=== PATIENT | male | born 1970 | race Caucasian/White ===

== ENCOUNTER 2016-05-12 09:39 | Emergency (ER) | payer OTHER ==
--- NOTE | 2016-05-12 11:11 | XR ---
EXAMINATION TYPE: XR ribs LT w pa chest x-ray DATE OF EXAM ORDERED: 05/12/2016 10:44 AM HISTORY: Pain. COMPARISON: None. FINDINGS: There is some scarring or atelectasis at the left lung base. The lungs are otherwise clear . Pleural spaces are clear. Heart size is within normal limits. No displaced rib fractures seen. No p neumothorax is identified. IMPRESSION: 1. NO ACUTE INTRATHORACIC ABNORMALITY. 2. I DO NOT IDENTIFY A DISPLACED RIB FRACTURE AT THIS TIME.
--- NOTE | 2016-05-12 11:37 | ED ---
Chest Pain HPI - General Chief Complaint: Chest Pain Stated Complaint: rib injury, [facility] Time Seen by Provider: 05/12/16 10:16 Source: patient, RN notes reviewed Mode of arrival: ambulatory Limitations: no limitations - History of Present Illness Initial Comments: 46-year-old male presents emergency Department with chief complaint of rib pain. Patient states he works for [employer]. Patient states that he was doing some training exercise when his partner fell onto his chest wall. Patient states she had sudden onset of left rib pain. Patient states hurts to deep inspiration. Patient has no shortness breath at rest but states it hurts when he takes deep breath. Patient denies any other extremity injuries. No head injury. - Related Data Previous Rx's Medication Instructions Recorded Hydrocodone/Acetaminophen [[place] 1 tab PO Q6HR PRN #20 tab 05/12/16 5-325] Allergies Allergy/AdvReac Type Severity Reaction Status Date / Time No Known Allergies Allergy Verified 05/12/16 10:02 Review of Systems ROS Statement: Those systems with pertinent positive or pertinent negative responses have been documented in the HPI. ROS Other: All systems not noted in ROS Statement are negative. Past Medical History Past Medical History: No Reported History History of Any Multi-Drug Resistant Organisms: None Reported Additional Past Surgical History / Comment(s): abd surgery Past Psychological History: No Psychological Hx Reported Smoking Status: Never smoker Past Alcohol Use History: Rare Past Drug Use History: None Reported General Exam Limitations: no limitations General appearance: alert, in no apparent distress Head exam: Present: atraumatic, normocephalic, normal inspection Neck exam: Present: normal inspection, full ROM. Absent: tenderness, meningismus, lymphadenopathy Respiratory exam: Present: normal lung sounds bilaterally, chest wall tenderness (Moderate anterior to lateral chest wall tenderness). Absent: respiratory distress, wheezes, rales, rhonchi, stridor Cardiovascular Exam: Present: regular rate, normal rhythm, normal heart sounds. Absent: systolic murmur, diastolic murmur, rubs, gallop, clicks Course Vital Signs 05/12/16 09:58 Temperature 98.0 F Pulse Rate 88 Respiratory 18 Rate Blood Pressure 133/83 O2 Sat by Pulse 98 Oximetry Chest Pain [facility] 38-year-old male presented for chest wall injury. There is no acute fractures identified on x-ray. Patient will be discharged at this time. Disposition Clinical Impression: Rib contusion Disposition: HOME SELF-CARE Condition: Stable Instructions: Rib Contusion (ED) Additional Instructions: Please return to the Emergency Department if symptoms worsen or any other concerns. Prescriptions: Hydrocodone/Acetaminophen [[place] 5-325] 1 tab PO Q6HR PRN #20 tab PRN Reason: Pain Referrals: None,Stated [Primary Care Provider] - 1-2 days Time of Disposition: 11:37
[2016-05-12 11:56] VITALS: BP 120/70; PULSE 74; RESP 16; TEMP 98
== END 2016-05-12 11:55 | disposition home or self-care (01) ==
LOC: EC 09:39
DX: S20.212A Contusion of left front wall of thorax, initial encounter (principal); W03.XXXA Other fall on same level due to collision with another person, initial encounter; Y93.89 Activity, other specified
CPT/HCPCS: 99283

== ENCOUNTER → 2018-11-27 | Outpatient (CLI) | payer BC ==
[2018-11-27 16:42] LABS: Iron Saturation 10.26 (15.00-50.00)
[2018-11-28 01:16] LABS: ACTH 37.3 pg/mL (0.00-45.99)
== END | disposition home or self-care (01) ==
LOC: LABWHC1 10:25
PROVIDERS: ATTEND Internal Medicine Endocrinology, Diabetes & Metabolism
DX: R53.83 Other fatigue (principal)
CPT/HCPCS: 36415; 82024; 82533; 83540; 83550; 84403

== ENCOUNTER → 2018-12-11 | Outpatient (CLI) | payer BC ==
[2018-12-11 10:57] LABS: HCT 38.8 % (39.0-53.0); HGB 12.9 gm/dL (13.0-17.5); MCH 27.8 pg (25.0-35.0); MCHC 33.2 g/dL (31.0-37.0); MCV 83.6 fL (80.0-100.0); Mean Platelet Volume 5.6; Platelet Count 229 k/uL (150-450); RBC 4.64 m/uL (4.30-5.90); RDW 14.8 % (11.5-15.5); WBC 10.5 k/uL (3.8-10.6)
== END | disposition home or self-care (01) ==
LOC: LABWHC1 09:50
PROVIDERS: ATTEND Internal Medicine Endocrinology, Diabetes & Metabolism
DX: E29.1 Testicular hypofunction (principal); E03.8 Other specified hypothyroidism; R53.83 Other fatigue
CPT/HCPCS: 36415; 83002; 84153; 84403; 85027

== ENCOUNTER → 2019-08-07 | Outpatient (CLI) | payer BC ==
[2019-08-07 20:51] LABS: Hemoglobin A1C 6.5 % (4.0-6.0)
[2019-08-07 23:24] LABS: Urine Creatinine 107.8 mg/dL
[2019-08-08 00:25] LABS: African American GFR (CKD) 119.9 (60.0-200.0); Albumin 4.4 g/dL (3.80-4.90); Albumin/Globulin Ratio 1.91 (1.60-3.17); Anion Gap 8.5 mmol/L (4.00-12.00); BUN/Creat Ratio 16.25 Ratio (12.00-20.00); Carbon Dioxide 28.5 mmol/L (21.6-31.8); Chol/HDL Ratio 5.4; Globulin 2.3 g/dL (1.6-3.3); LDL Cholesterol,Calculated 115.2 mg/dL (0.0-131.0); Non-African American GFR(CKD) 103.4 (60.0-200.0); Potassium 4.5 mmol/L (3.5-5.5); Total Bilirubin 0.6 mg/dL (0.3-1.2); Total Protein 6.7 g/dL (6.2-8.2); VLDL Calculation 38.8 mg/dL (5.00-40.00)
== END | disposition home or self-care (01) ==
LOC: LABWHC1 12:07
PROVIDERS: ATTEND Internal Medicine Endocrinology, Diabetes & Metabolism
DX: E11.65 Type 2 diabetes mellitus with hyperglycemia (principal); E29.1 Testicular hypofunction; E03.8 Other specified hypothyroidism
CPT/HCPCS: 36415; 80053; 80061; 82043; 82570; 83036; 84403; 84443

== ENCOUNTER → 2019-11-24 | Outpatient (CLI) | payer BC ==
[2019-11-24 10:55] LABS: HCT 45.5 % (39.0-53.0); HGB 14.4 gm/dL (13.0-17.5); MCH 26.4 pg (25.0-35.0); MCHC 31.6 g/dL (31.0-37.0); MCV 83.6 fL (80.0-100.0); Mean Platelet Volume 6.6; Platelet Count 231 k/uL (150-450); RBC 5.44 m/uL (4.30-5.90); RDW 15.5 % (11.5-15.5)
[2019-11-24 18:12] LABS: Prolactin >1000.0 ng/mL; Prostate Specific Antigen 0.4 ng/mL (0.0-3.5)
== END | disposition home or self-care (01) ==
LOC: LABWHC1 09:35
PROVIDERS: ATTEND Internal Medicine Endocrinology, Diabetes & Metabolism
DX: E11.65 Type 2 diabetes mellitus with hyperglycemia (principal); E29.1 Testicular hypofunction; E03.8 Other specified hypothyroidism; R53.83 Other fatigue
CPT/HCPCS: 36415; 82024; 82533; 83036; 84146; 84153; 84403; 84443; 85027

== ENCOUNTER → 2019-12-01 | Outpatient (CLI) | payer BC ==
[2019-12-01 18:38] LABS: ALT 28 U/L (10-49); AST 26 U/L (14-35); African American GFR (CKD) 100.6 (60.0-200.0); Albumin/Globulin Ratio 2.26 (1.60-3.17); Alkaline Phosphatase 70 U/L (41-126); Calcium 9.2 mg/dL (8.7-10.3); Carbon Dioxide 30.4 mmol/L (21.6-31.8); Chloride 103 mmol/L (96-109); Globulin 1.9 g/dL (1.6-3.3); Glucose 121 mg/dL (70-110); Non-African American GFR(CKD) 86.8 (60.0-200.0); Potassium 4.3 mmol/L (3.5-5.5); Sodium 140 mmol/L (135-145); Total Bilirubin 0.6 mg/dL (0.2-1.2); Total Protein 6.2 g/dL (6.2-8.2)
[2019-12-02 17:19] LABS: Prolactin >1000.0 ng/mL
== END | disposition home or self-care (01) ==
LOC: LABWHC1 13:39
PROVIDERS: ATTEND Internal Medicine Endocrinology, Diabetes & Metabolism
DX: E11.65 Type 2 diabetes mellitus with hyperglycemia (principal); D35.2 Benign neoplasm of pituitary gland
CPT/HCPCS: 36415; 80053; 82024; 82533; 84146; 84305

== ENCOUNTER → 2020-01-07 | Outpatient (CLI) | payer BC ==
[2020-01-07 16:49] LABS: Prolactin 78.3 ng/mL (2.1-17.7)
== END | disposition home or self-care (01) ==
LOC: LABWHC1 10:04
PROVIDERS: ATTEND Internal Medicine Endocrinology, Diabetes & Metabolism
DX: E03.8 Other specified hypothyroidism (principal); D35.2 Benign neoplasm of pituitary gland; E29.1 Testicular hypofunction
CPT/HCPCS: 36415; 82024; 82533; 84146; 84403; 84439; 84443

== ENCOUNTER → 2020-03-18 | Outpatient (CLI) | payer BC ==
[2020-03-18 12:16] LABS: HCT 41.6 % (39.0-53.0); MCH 28.6 pg (25.0-35.0); MCHC 33.7 g/dL (31.0-37.0); MCV 84.9 fL (80.0-100.0); Mean Platelet Volume 6.6; Platelet Count 205 k/uL (150-450); WBC 7.7 k/uL (3.8-10.6)
[2020-03-18 20:53] LABS: Albumin 4.6 g/dL (3.80-4.90); Anion Gap 7.9 mmol/L (4.00-12.00); BUN/Creat Ratio 21.25 Ratio (12.00-20.00); Calcium 9.8 mg/dL (8.7-10.3); Carbon Dioxide 28.1 mmol/L (21.6-31.8); Chol/HDL Ratio 6.29; Globulin 2.3 g/dL (1.6-3.3); Non-African American GFR(CKD) 102.7 (60.0-200.0); Potassium 4.3 mmol/L (3.5-5.5); Total Bilirubin 0.6 mg/dL (0.3-1.2); Total Protein 6.9 g/dL (6.2-8.2)
[2020-03-18 21:06] LABS: Prolactin 64.3 ng/mL (2.1-17.7)
[2020-03-18 22:02] LABS: Hemoglobin A1C 6.6 % (4.0-6.0)
[2020-03-18 22:41] LABS: Urine Creatinine 85.5 mg/dL
== END | disposition home or self-care (01) ==
LOC: LABWHC1 10:51
PROVIDERS: ATTEND Internal Medicine Endocrinology, Diabetes & Metabolism
DX: E11.65 Type 2 diabetes mellitus with hyperglycemia (principal); E29.1 Testicular hypofunction; D35.2 Benign neoplasm of pituitary gland
CPT/HCPCS: 36415; 80053; 80061; 82043; 82533; 82570; 83036; 84146; 84403; 84439; 84443; 85027

== ENCOUNTER → 2022-01-10 | Outpatient (CLI) | payer BC ==
[2022-01-10 15:21] LABS: HCT 42.5 % (39.6-50.0); HGB 13.9 g/dL (13.0-17.0); MCH 27.7 pg (27.0-32.0); MCHC 32.7 g/dL (32.0-37.0); MCV 84.7 fL (80.0-97.0); Mean Platelet Volume 9.8 fL (9.5-12.2); NRBC Per 100 WBC 0 /100 WBCS (0.0-0.0); Platelet Count 183 X 10*3/uL (140-440); RBC 5.02 X 10*6/uL (4.40-5.60); WBC 6.64 X 10*3/uL (4.50-10.00)
[2022-01-10 15:51] LABS: Chol/HDL Ratio 6.11 Ratio
[2022-01-10 17:53] LABS: ALT 70 U/L (10-49); AST 58 U/L (14-35); African American GFR (CKD) 120.3 (60.0-200.0); Albumin 4.4 g/dL (3.8-4.9); Albumin/Globulin Ratio 1.45 (1.60-3.17); Alkaline Phosphatase 72 U/L (41-126); BUN/Creat Ratio 15.27 Ratio (12.00-20.00); Blood Urea Nitrogen 11.5 mg/dL (9.0-27.0); Calcium 9.1 mg/dL (8.7-10.3); Carbon Dioxide 24.5 mmol/L (20.0-27.5); Chloride 102 mmol/L (96-109); Glucose 166 mg/dL (70-110); Non-African American GFR(CKD) 103.8 (60.0-200.0); Potassium 4.6 mmol/L (3.5-5.5); Sodium 138 mmol/L (135-145); Total Protein 7.4 g/dL (6.2-8.2)
== END | disposition home or self-care (01) ==
LOC: LABWHC1 08:02
PROVIDERS: ATTEND Internal Medicine Endocrinology, Diabetes & Metabolism
DX: E11.65 Type 2 diabetes mellitus with hyperglycemia (principal); D35.2 Benign neoplasm of pituitary gland; E29.1 Testicular hypofunction
CPT/HCPCS: 36415; 80053; 80061; 82043; 82570; 83036; 84146; 84153; 84403; 84443; 85027

== ENCOUNTER → 2022-02-02 | Outpatient (CLI) | payer BC ==
[2022-02-02 10:34] LABS: HGB 12.8 g/dL (13.0-17.0); MCH 27.4 pg (27.0-32.0); MCHC 31.2 g/dL (32.0-37.0); MCV 87.8 fL (80.0-97.0); Mean Platelet Volume 9.4 fL (9.5-12.2); NRBC Per 100 WBC 0 /100 WBCS (0.0-0.0); Platelet Count 174 X 10*3/uL (140-440); RBC 4.67 X 10*6/uL (4.40-5.60); RDW 14.3 % (11.5-14.5); WBC 6.44 X 10*3/uL (4.50-10.00)
[2022-02-02 10:53] LABS: ALT 63 U/L (10-49); AST 46 U/L (14-35); African American GFR (CKD) 117.4 (60.0-200.0); Albumin 4.2 g/dL (3.8-4.9); Alkaline Phosphatase 66 U/L (41-126); BUN/Creat Ratio 14.75 Ratio (12.00-20.00); Blood Urea Nitrogen 11.8 mg/dL (9.0-27.0); Calcium 9.6 mg/dL (8.7-10.3); Carbon Dioxide 26.4 mmol/L (20.0-27.5); Chloride 101 mmol/L (96-109); Globulin 2.8 g/dL (1.6-3.3); Glucose 143 mg/dL (70-110); Non-African American GFR(CKD) 101.3 (60.0-200.0); Potassium 4.8 mmol/L (3.5-5.5); Sodium 139 mmol/L (135-145)
[2022-02-02 10:54] LABS: Chol/HDL Ratio 6.03 Ratio
== END | disposition home or self-care (01) ==
LOC: LABWHC1 07:41
PROVIDERS: ATTEND Internal Medicine Endocrinology, Diabetes & Metabolism
DX: E11.65 Type 2 diabetes mellitus with hyperglycemia (principal); D35.2 Benign neoplasm of pituitary gland; E29.1 Testicular hypofunction
CPT/HCPCS: 36415; 80053; 80061; 82043; 82570; 83036; 84146; 84153; 84403; 84443; 85027